=== PATIENT | male | born 1995 | race Caucasian/White ===

== ENCOUNTER 2020-05-12 15:42 | Emergency (ER) | payer BC, MEDICAID ==
[2020-05-12] MEDS ORDERED: ASPIRIN 81 MG PO STA (16:37)
[2020-05-12] MEDS ORDERED: SODIUM CHLORIDE 0.9% 1,000 ML IV STA ×2 (16:37)
--- NOTE | 2020-05-12 17:35 | ED ---
Chest Pain HPI - General Source: patient, RN notes reviewed, old records reviewed, Caregiver Mode of arrival: ambulatory Limitations: no limitations <Mildred Castillo - Last Filed: 05/12/20 19:10> <Ji Carter - Last Filed: 05/12/20 21:00> - General Chief Complaint: Chest Pain Stated Complaint: chest pain Time Seen by Provider: 05/12/20 16:19 - History of Present Illness Initial Comments: Patient is a 25 [place] demonstrates or infiltrates and chest pain. Patient reports that symptoms started saline at work. He states he typically does have some right-sided chest pain associated with migraines. He states these have migraine last night but went away with the chest pain persisted. He reports chest pain since he worse with certain movements. He denies any specific known injury. He denies any significant shortness of breath or cough. (Mildred Castillo) - Related Data Home Medications Medication Instructions Recorded Confirmed No Known Home Medications 05/12/20 05/12/20 Allergies Allergy/AdvReac Type Severity Reaction Status Date / Time No Known Allergies Allergy Verified 05/12/20 18:23 Review of Systems ROS Other: All systems not noted in ROS Statement are negative. <Mildred Castillo - Last Filed: 05/12/20 19:10> ROS Other: All systems not noted in ROS Statement are negative. <Ji Carter - Last Filed: 05/12/20 21:00> ROS Statement: Those systems with pertinent positive or pertinent negative responses have been documented in the HPI. EKG Findings - EKG Comments: EKG Findings:: EKG shows normal sinus rhythm minimal voltage criteria for LVH. May be normal variant. Inferior infarct age undetermined. Abnormal EKG. Ventricular rate 73 beats were minute period. Was 170 ms. QRS ration is 112 ms. QT QTc is 380/427 ms. <Mildred Castillo - Last Filed: 05/12/20 19:10> Past Medical History Past Medical History: No Reported History History of Any Multi-Drug Resistant Organisms: None Reported Past Surgical History: Bariatric Surgery, Tonsillectomy Past Anesthesia/Blood Transfusion Reactions: No Reported Reaction Past Psychological History: No Psychological Hx Reported Smoking Status: Never smoker Past Alcohol Use History: Occasional Past Drug Use History: None Reported <Mildred Castillo - Last Filed: 05/12/20 19:10> General Exam Limitations: no limitations General appearance: alert, in no apparent distress Head exam: Present: atraumatic, normocephalic, normal inspection Eye exam: Present: normal appearance, PERRL, EOMI. Absent: scleral icterus, conjunctival injection, periorbital swelling ENT exam: Present: normal exam, mucous membranes moist Neck exam: Present: normal inspection. Absent: tenderness, meningismus, lymphadenopathy Respiratory exam: Present: normal lung sounds bilaterally. Absent: respiratory distress, wheezes, rales, rhonchi, stridor Cardiovascular Exam: Present: regular rate, normal rhythm, normal heart sounds, other (Patient does have some tenderness over the right chest wall.). Absent: systolic murmur, diastolic murmur, rubs, gallop, clicks Extremities exam: Present: normal inspection, full ROM, normal capillary refill. Absent: tenderness, pedal edema, joint swelling, calf tenderness Back exam: Present: normal inspection Neurological exam: Present: alert, oriented X3, CN II-XII intact <Mildred Castillo - Last Filed: 05/12/20 19:10> - General Exam Comments Initial Comments: 25-year-old male. Alert and oriented. No distress. (Mildred Castillo) Course Vital Signs 05/12/20 05/12/20 15:44 17:39 Temperature 98.8 F Pulse Rate 74 75 Respiratory 16 18 Rate Blood Pressure 164/93 136/84 O2 Sat by Pulse 98 100 Oximetry Chest Pain [facility] <Mildred Castillo - Last Filed: 05/12/20 19:10> - [facility] 25-year-old male presents emergency room today with complaints of chest discomfort. Symptoms starting today when he was at work. He reports he's had a history of right-sided chest pain with migraines but this pain seem to persist today. Does seem to be recent producible. Patient is morbidly obese. Initial EKG was reviewednegative ST elevation. His initial troponin is negative. His vital signs are stable. He rated his pain a 3 out of 10 on the right side of his chest. With patient's obesity and some risk factors we decided to repeat a troponin. Case is discussed with Dr. Carter well away to final disposition. (Mildred Castillo) Disposition <Mildred Castillo - Last Filed: 05/12/20 19:10> Is patient prescribed a controlled substance at d/c from ED?: No Time of Disposition: 21:00 <Ji Carter - Last Filed: 05/12/20 21:00> Clinical Impression: Chest pain Disposition: HOME SELF-CARE Condition: Good Instructions (If sedation given, give patient instructions): Chest Pain (ED) Referrals: Nolan Hoffmann MD [Primary Care Provider] - 1-2 days
[2020-05-12 17:38] LABS: Basophils % (A) 0 %; Eosinophils # (A) 0.2 k/uL (0-0.7); Eosinophils % (A) 2 %; HCT 46.2 % (39.0-53.0); Lymphocytes % (A) 20 %; MCH 30.4 pg (25.0-35.0); MCHC 34.7 g/dL (31.0-37.0); MCV 87.7 fL (80.0-100.0); Mean Platelet Volume 6.1; Monocytes # (A) 0.5 k/uL (0-1.0); Monocytes % (A) 5 %; Neutrophils # (A) 7.1 k/uL (1.3-7.7); Neutrophils % (A) 71 %; Platelet Count 228 k/uL (150-450); RBC 5.27 m/uL (4.30-5.90); RDW 13.6 % (11.5-15.5)
[2020-05-12 17:51] LABS: Partial Thromboplastin Time 25.2 sec (22.0-30.0); Prothrombin Time 10.1 sec (9.0-12.0)
[2020-05-12 17:53] LABS: ALT 18 U/L (4-49); AST 21 U/L (17-59); African American GFR (CKD) >90 (>60 ml/min/1.73 sqM); Albumin 4.4 g/dL (3.5-5.0); Alkaline Phosphatase 62 U/L (38-126); Anion Gap 7 mmol/L; Blood Urea Nitrogen 14 mg/dL (9-20); Calcium 9.2 mg/dL (8.4-10.2); Carbon Dioxide 26 mmol/L (22-30); Chloride 105 mmol/L (98-107); Glucose 90 mg/dL (74-99); Magnesium 2.1 mg/dL (1.6-2.3); Non-African American GFR(CKD) >90 (>60 ml/min/1.73 sqM); Potassium 4.4 mmol/L (3.5-5.1); Sodium 138 mmol/L (137-145); Total Bilirubin 0.8 mg/dL (0.2-1.3); Total Protein 7.1 g/dL (6.3-8.2)
--- NOTE | 2020-05-12 18:27 | XR ---
EXAMINATION TYPE: XR chest 2V DATE OF EXAM: 05/12/2020 COMPARISON: None HISTORY: Chest pain TECHNIQUE: 2 views FINDINGS: Heart and mediastinum are normal. Lungs are clear. Diaphragm is normal. Bony thorax appears normal. There are chest leads. IMPRESSION: Normal chest.
[2020-05-12] MEDS ORDERED: KETOROLAC 30 MG/ML 1 ML VIAL IVP STA (18:28)
[2020-05-12 21:33] VITALS: BP 130/66; PULSE 79; RESP 19; TEMP 99
== END 2020-05-12 21:33 | disposition home or self-care (01) ==
LOC: EC 15:42
DX: R07.89 Other chest pain (principal); E66.01 Morbid (severe) obesity due to excess calories; R94.31 Abnormal electrocardiogram [ECG] [EKG]; Z98.84 Bariatric surgery status; Z68.43 Body mass index [BMI] 50.0-59.9, adult
CPT/HCPCS: 36415; 93005; 83880; 80053; 83690; 83735; 84484; 85025; 85610; 85730; 71046; 99285; 96374; 96361 ×3; J1885

== ENCOUNTER 2023-12-06 04:46 | Emergency (ER) | payer MEDICAID ==
[2023-12-06 05:21] VITALS: RESP 18; TEMP 98.4
[2023-12-06] MEDS: PROPARACAINE 0.5% OPHTH DROPS 15 ML BTL BOTH EYES STA (06:09)
[2023-12-06] MEDS: FLUOROMETHOLONE 0.1% OPHTH DROPS 5 ML BTL BOTH EYES STA (06:24)
[2023-12-06] MEDS: FLUORESCEIN STRIPS 1 MG STRIP BOTH EYES STA (06:24)
[2023-12-06] MEDS: DIPH,PERTUS(ACELL)TETVAC-LF 0.5 ML VIAL IM ONE (06:54)
[2023-12-06] MEDS: ERYTHROMYCIN 5 MG/GM OPHTH OINT 1 GM TUBE RIGHT EYE STA (06:55)
--- NOTE | 2023-12-06 06:58 | ED ---
General Adult HPI - General Chief complaint: Eye Problems Stated complaint: rt eye pain Time Seen by Provider: 12/06/23 06:04 Source: patient, RN notes reviewed Mode of arrival: ambulatory Limitations: no limitations - History of Present Illness Initial comments: 48-year-old male presents into the emergency room for a chief complaint of right eye irritation. 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 He states he does not always use eye protection and was in yesterday. He took his hat off and started to notice irritation in the right eye. States it is tearing and painful to keep open or closed. Does not wear contacts. He states his looked in his eye and saw Dr. Stubbs and he thinks he has metal in his eye. He is not up-to-date on tetanus. His vision is a little blurry because of the tearing. No pain with movement of the eye.Patient has no other complaints at this time including shortness of breath, chest pain, abdominal pain, nausea or vomiting, headache, or visual changes. - Related Data Previous Rx's Medication Instructions Recorded Erythromycin Ophth Oint [Romycin 1 applic RIGHT EYE QID 7 Days #1 gm 12/06/23 Ophth Oint] Allergies Allergy/AdvReac Type Severity Reaction Status Date / Time No Known Allergies Allergy Verified 12/06/23 04:51 Review of Systems ROS Statement: Those systems with pertinent positive or pertinent negative responses have been documented in the HPI. ROS Other: All systems not noted in ROS Statement are negative. Past Medical History Past Medical History: No Reported History History of Any Multi-Drug Resistant Organisms: None Reported Past Surgical History: Bariatric Surgery, Tonsillectomy Past Anesthesia/Blood Transfusion Reactions: No Reported Reaction Past Psychological History: No Psychological Hx Reported Smoking Status: Never smoker Past Alcohol Use History: Occasional Past Drug Use History: None Reported General Exam Limitations: no limitations General appearance: alert, in no apparent distress Head exam: Present: atraumatic Eye exam: Present: PERRL, EOMI, conjunctival injection (Right conjunctival in jection with small metallic foreign body at about 5:00). Absent: periorbital swelling, periorbital tenderness Expanded Eyelids: Normal Inspection: Bilateral Pupils: Regular, Round: Bilateral Sclera/Conjunctival: Foreign Body: Right Anterior chamber: Normal Inspection: Bilateral Posterior chamber: Deferred: Bilateral Visual acuity (R) = 20/: 40 Visual acuity (L) = 20/: 50 With correction: No ENT exam: Present: normal exam Neck exam: Present: normal inspection Respiratory exam: Absent: respiratory distress Neurological exam: Present: alert Course Vital Signs 12/06/23 04:48 Temperature 98.4 F Pulse Rate 67 Respiratory 18 Rate Blood Pressure 145/91 O2 Sat by Pulse 98 Oximetry Procedures - Forgein Body Removal Eye Site: Right Location in eye(s): 5 pm Anesthetic Used: Proparacaine Eye Exam Technique: [place] Lamp, Fluorescein Foreign Body Suspected: Metal Forgein Body Removal Technique: Irrigation, Algerbrush Remaining Debris: No Patient Tolerated: well Medical Decision Making - Medical Decision Making Was pt. sent in by a medical professional or institution (ZELALEM Benitez, KNITTING MACHINE FIXER HEAD, urgent care, hospital, or group home...) When possible be specific @ -No Did you speak to anyone other than the patient for history (EMS, parent, family, police, friend...)? What history was obtained from this source @ -No Did you review nursing and triage notes (agree or disagree)? Why? @ -I reviewed and agree with nursing and triage notes Were old charts reviewed (outside hosp., previous admission, EMS record, old EKG, old radiological studies, urgent care reports/EKG's, group home records)? Report findings @ -No old charts were reviewed Differential Diagnosis (chest pain, altered mental status, abdominal pain women, abdominal pain men, vaginal bleeding, weakness, fever, dyspnea, syncope, headache, dizziness, GI bleed, back pain, seizure, CVA, palpatations, mental health)? @ -Conjunctivitis, foreign body, globe rupture EKG interpreted by me (3pts min.). @ -As above X-rays interpreted by me (1pt min.). @ -None done CT interpreted by me (1pt min.). @ -None done U/S interpreted by me (1pt. min.). @ -None done What testing was considered but not performed or refused? (CT, X-rays, U/S, labs)? Why? @ -None What meds were considered but not given or refused? Why? @ -None Did you discuss the management of the patient with other professionals (professionals i.e. ZELALEM Benitez, KNITTING MACHINE FIXER HEAD, lab, RT, psych nurse, social contact worker, software database architect, teacher, biological technical officer, case management associate)? Give summary @ -Will be discussing with ophthalmology Was smoking cessation discussed for >3mins.? @ -No Was critical care preformed (if so, how long)? @ -No Were there social determinants of health that impacted care today? How? (Homelessness, low income, unemployed, alcoholism, drug addiction, transport ation, low edu. Level, literacy, decrease access to med. care, custodial, rehab)? @ -No Was there de-escalation of care discussed even if they declined (Discuss DNR or withdrawal of care, Hospice)? DNR status @ -No What co-morbidities impacted this encounter? (DM, HTN, Smoking, COPD, CAD, Cancer, CVA, ARF, Chemo, Hep., AIDS, mental health diagnosis, sleep apnea, morbid obesity)? @ -None Was patient admitted / discharged? Hospital course, mention meds given and route, prescriptions, significant lab abnormalities, going to OR and other pertinent info. @ -Was seen in the emergency Department. Patient was noted to have foreign body in the right eye at about 5:00. Schoolcraft brush was used and I believe all foreign material was removed from the eye. Patient was given his tetanus shot and antibiotic ointment. I am planning on discussing with ophthalmology this morning for follow-up. He will return to the emergency room for any worsening symptoms. Undiagnosed new problem with uncertain prognosis? @ -No Drug Therapy requiring intensive monitoring for toxicity (Heparin, Nitro, Insulin, Cardizem)? @ -No Were any procedures done? @ -Body removal from the right eye with Schoolcraft brush Diagnosis/symptom? @ -Randolph body right conjunctiva Acute, or Chronic, or Acute on Chronic? @ -Acute Uncomplicated (without systemic symptoms) or Complicated (systemic symptoms)? @ -unComplicated Side effects of treatment? @ -No Exacerbation, Progression, or Severe Exacerbation? @ -No Poses a threat to life or bodily function? How? (Chest pain, [place], [place], pneumonia, PE, COPD, DKA, ARF, appy, cholecystitis, CVA, Diverticulitis, Homicidal, Suicidal, threat to staff... and all critical care pts) @ -No Disposition Clinical Impression: Foreign body, eye Disposition: HOME SELF-CARE Condition: Good Instructions (If sedation given, give patient instructions): Eye Foreign Body (ED) Additional Instructions: Please use antibiotic ointment as directed. I sent some to your pharmacy as katie pena. Please follow-up with ophthalmology. I will call your after I talk with them this morning. Return to the ER for any worsening symptoms. Prescriptions: Erythromycin Ophth Oint [Romycin Ophth Oint] 1 applic RIGHT EYE QID 7 Days #1 gm Is patient prescribed a controlled substance at d/c from ED?: No Referrals: Solis Silver MD [STAFF PHYSICIAN] - 1-2 days Time of Disposition: 06:55
[2023-12-06 07:30] VITALS: BP 119/78; PULSE 63
== END 2023-12-06 07:05 | disposition home or self-care (01) ==
LOC: EC 04:46
DX: T15.01XA Foreign body in cornea, right eye, initial encounter (principal); Z23 Encounter for immunization
CPT/HCPCS: 65220; 90471; 90715; 99283

== ENCOUNTER 2025-04-20 09:50 | Observation (INO) | payer MEDICAID ==
[2025-04-20] MEDS: KETOROLAC 15 MG/ML 1 ML VIAL IVP STA (11:00)
[2025-04-20 11:27] LABS: Bilirubin,Urine Negative (Negative); Blood,Urine Negative (Negative); Color,Urine Yellow; Glucose,Urine (UA) Negative (Negative); Ketones,Urine Negative (Negative); Leukocyte Esterase,Urine Negative (Negative); Nitrite,Urine Negative (Negative); PH, Urine 5.5 (5.0-8.0); Protein,Urine Trace (Negative); Specific Gravity,Urine 1.033 (1.001-1.035); Urobilinogen,Urine <2.0 mg/dL (<2.0)
[2025-04-20 11:31] LABS: ALT 17 U/L (4-49); African American GFR (CKD) >90 (>60 ml/min/1.73 sqM); Albumin 4.4 g/dL (3.5-5.0); Anion Gap 13 mmol/L; Blood Urea Nitrogen 12 mg/dL (9-20); Calcium 9.5 mg/dL (8.4-10.2); Carbon Dioxide 22 mmol/L (22-30); Chloride 103 mmol/L (98-107); Glucose 101 mg/dL (74-99); Non-African American GFR(CKD) >90 (>60 ml/min/1.73 sqM); Sodium 138 mmol/L (137-145); Total Protein 7.2 g/dL (6.3-8.2)
[2025-04-20 11:43] LABS: AST 27 U/L (17-59); Alkaline Phosphatase 62 U/L (38-126); Potassium 4.1 mmol/L (3.5-5.1)
--- NOTE | 2025-04-20 11:51 | US ---
EXAMINATION TYPE: US scrotum with doppler. DATE OF EXAM: 04/20/2025 COMPARISON: NONE CLINICAL INDICATION: Male, 30 years old with history of pain; Pain in right testicle started this mor danny. Patient states he was doing heavy lifting yesterday. TECHNIQUE: Grayscale, color Doppler and spectral Doppler imaging of the scrotum. FINDINGS: EXAM MEASUREMENTS: TESTICLES: Right Testicle: 5.1 x 3.3 x 2.2 cm Left Testicle: 4.8 x 3.4 x 2.6 cm EPIDIDYMIS HEAD: Right Epididymis: 1.3 x 1.0 x 0.9 cm Left Epididymis: 0.9 x 1.3 x 1.1 cm Doppler performed to assess for testicular vascularity; bilateral color flow and spectral waveforms are seen. Presence of hydroceles: *Yes right: 3.9 x 3.4 x 0.7 cm. Left: 2.1 x 1.9 x 0.8 cm. Presence of varicoceles: None seen Question possible scrotal hernia? Echogenic area seen in right scrotum, moves with valsalva, unab le to follow to see a break in the wall for certain. IMPRESSION: Scrotal hernia not excluded. Bilateral hydroceles. Correlate clinically. [facility], , 04/20/2025 11:49 AM
--- NOTE | 2025-04-20 13:05 | CT ---
[facility] EXAMINATION TYPE: CT abdomen pelvis w con DATE OF EXAM: 04/20/2025 12:57 PM COMPARISON: None. CLINICAL INDICATION: Male, 30 years old with history of pain right, possible hernia, Right sided groi n pain radiating up into RUQ since this morning TECHNIQUE:CT scan of the abdomen and pelvis is performed without Oral Contrast and with IV Contrast, patient injected with 100 ml mL of Isovue 300. CT DLP: 5960.6 mGycm, Automated exposure control for dose reduction was used. FINDINGS: LUNG BASES-: No visible nodule. No infiltrate. LIVER/GB: No calcified gallstones. No space occupying hepatic lesion. Biliary tree is of normal ca liber. PANCREAS: No inflammation. No distinct mass. SPLEEN: No splenic enlargement. No lesion seen. ADRENALS: No nodule. No thickening. KIDNEYS/BLADDER: No hydronephrosis. No nephrolithiasis. No distinct renal mass. Urinary bladder g rossly unremarkable. BOWEL: Dilated appendix up to 1.5 cm with wall thickening and periappendiceal inflammatory change. On the coronal data set there is a small appendicolith. Findings are compatible with mild uncomplicated acute appendicitis. Normal bowel caliber. No free air or abscess seen. GENITAL ORGANS: No gross abnormality. LYMPH NODES: No greater than 1cm abdominal or pelvic lymph nodes are appreciated. AORTA: No significant abnormality. OSSEOUS STRUCTURES: No significant abnormality is seen. OTHER: No significant additional abnormality is seen. IMPRESSION: 1. Findings are compatible with mild uncomplicated acute appendicitis. [facility], , 04/20/2025 1:03 PM
[2025-04-20 13:35] LABS: Basophils # (A) 0.04 10*3/uL (0.00-0.10); Basophils % (A) 0.3 %; Eosinophils # (A) 0.07 10*3/uL (0.04-0.35); Eosinophils % (A) 0.5 %; HCT 45.0 % (39.6-50.0); HGB 15.9 g/dL (13.0-17.0); Lymphocytes # (A) 1.37 10*3/uL (0.90-5.00); Lymphocytes % (A) 9.8 %; MCH 30.2 pg (27.0-32.0); MCHC 35.3 g/dL (32.0-37.0); MCV 85.6 fL (80.0-97.0); Monocytes # (A) 0.83 10*3/uL (0.20-1.00); Monocytes % (A) 5.9 %; Neutrophils # (A) 11.65 10*3/uL (1.80-7.70); Neutrophils % (A) 83.1 %; Platelet Count 193 10*3/uL (140-440); RBC 5.26 10*6/uL (4.40-5.60); RDW 12.6 % (11.5-14.5); WBC 14.01 10*3/uL (4.50-10.00)
[2025-04-20] MEDS ORDERED: NALOXONE 0.4 MG/ML 1 ML VIAL IV PRN (13:43)
[2025-04-20] MEDS ORDERED: ONDANSETRON 4 MG/2 ML VIAL IVP PRN (13:43)
--- NOTE | 2025-04-20 13:43 | ED ---
Abdominal Pain HPI - General Chief Complaint: Abdominal Pain Stated Complaint: Abd Pain Time Seen by Provider: 04/20/25 10:24 Source: patient, RN notes reviewed Mode of arrival: ambulatory Limitations: no limitations - History of Present Illness Initial Comments: 30-year-old male presents emergency department complaint of right side abdominal pain, scrotal pain. Patient states pain started swelling when he woke up his steadily worsening. States initially he said the abdominal pain was into the scrotum denies any dysuria no change in bowel habits no fevers. - Related Data Previous Rx's Medication Instructions Recorded Erythromycin Ophth Oint [Romycin 1 applic RIGHT EYE QID 7 Days #1 gm 12/06/23 Ophth Oint] Allergies Allergy/AdvReac Type Severity Reaction Status Date / Time No Known Allergies Allergy Verified 04/20/25 10:17 Review of Systems ROS Statement: Those systems with pertinent positive or pertinent negative responses have been documented in the HPI. ROS Other: All systems not noted in ROS Statement are negative. Past Medical History Past Medical History: No Reported History History of Any Multi-Drug Resistant Organisms: None Reported Past Surgical History: Bariatric Surgery, Tonsillectomy Past Anesthesia/Blood Transfusion Reactions: No Reported Reaction Past Psychological History: No Psychological Hx Reported Smoking Status: Current every day smoker Past Alcohol Use History: Occasional Past Drug Use History: Marijuana General Exam Limitations: no limitations General appearance: alert, in no apparent distress Head exam: Present: atraumatic, normocephalic, normal inspection Eye exam: Present: normal appearance, PERRL, EOMI. Absent: scleral icterus, conjunctival injection, periorbital swelling ENT exam: Present: normal exam, normal oropharynx, mucous membranes moist Neck exam: Present: normal inspection, full ROM. Absent: tenderness, meningismus, lymphadenopathy Respiratory exam: Present: normal lung sounds bilaterally. Absent: respiratory distress, wheezes, rales, rhonchi, stridor Cardiovascular Exam: Present: regular rate, normal rhythm, normal heart sounds. Absent: systolic murmur, diastolic murmur, rubs, gallop, clicks GI/Abdominal exam: Present: soft, tenderness, normal bowel sounds. Absent: distended, guarding, rebound, rigid exam: Present: testicular tenderness Back exam: Absent: CVA tenderness (R), CVA tenderness (L) Course Vital Signs 04/20/25 04/20/25 04/20/25 10:14 11:09 13:14 Temperature 98 F Pulse Rate 68 70 57 L Respiratory 20 16 16 Rate Blood Pressure 126/89 131/80 133/75 O2 Sat by Pulse 99 97 97 Oximetry Medical Decision Making - Medical Decision Making Was pt. sent in by a medical professional or institution (ZELALEM Benitez, TUCKING MACHINE OPERATOR, urgent care, hospital, or senior care...) When possible be specific @ -[No] Did you speak to anyone other than the patient for history (EMS, parent, family, police, friend...)? What history was obtained from this source @ -[No] Did you review nursing and triage notes (agree or disagree)? Why? @ -[I reviewed and agree with nursing and triage notes] Were old charts reviewed (outside hosp., previous admission, EMS record, old EKG, old radiological studies, urgent care reports/EKG's, senior care records)? Report findings @ -[No old charts were reviewed] Differential Diagnosis (chest pain, altered mental status, abdominal pain women, abdominal pain men, vaginal bleeding, weakness, fever, dyspnea, syncope, headache, dizziness, GI bleed, back pain, seizure, CVA, palpatations, mental health, musculoskeletal)? @ -Differential Abdominal Pain Men: Appendicitis, cholecystitis, diverticulosis, ischemic bowel, pancreatitis, hepatitis, UTI, gastroenteritis, AAA, incarcerated hernia, bowel obstruction, constipation, inflammatory bowel, hepatitis, peptic ulcer disease, splenic infarction, perforated viscus, testicular torsion, this is not meant to be an all-inclusive list EKG interpreted by me (3pts min.). @ -None X-rays interpreted by me (1pt min.). @ -[None done] CT interpreted by me (1pt min.). @ -CT abdomen pelvis showing dilated appendix with inflammatory changes consistent with appendicitis U/S interpreted by me (1pt. min.). @ -Ultrasound scrotum showing hydrocele, possible hernia What testing was considered but not performed or refused? (CT, X-rays, U/S, labs)? Why? @ -[None] What meds were considered but not given or refused? Why? @ -[None] Did you discuss the management of the patient with other professionals (professionals i.e. , ZELALEM, TUCKING MACHINE OPERATOR, lab, RT, psych nurse, social work specialist, cylinder handler, teacher, contracting officer, keycase assembler)? Give summary @ -Discussed the case with Dr. Herrera for admission Was smoking cessation discussed for >3mins.? @ -[No] Was critical care preformed (if so, how long)? @ -[No] Were there social determinants of health that impacted care today? How? (Homelessness, low income, unemployed, alcoholism, drug addiction, transportation, low edu. Level, literacy, decrease access to med. care, [place] [facility], rehab)? @ -[No] Was there de-escalation of care discussed even if they declined (Discuss DNR or withdrawal of care, Hospice)? DNR status @ -[No] What co-morbidities impacted this encounter? (DM, HTN, Smoking, COPD, CAD, Cancer, CVA, ARF, Chemo, Hep., AIDS, mental health diagnosis, sleep apnea, morbid obesity)? @ -[None] Was patient admitted / discharged? Hospital course, mention meds given and route, prescriptions, significant lab abnormalities, going to OR and other pertinent info. @ -Admitted patient was given Zosyn. Patient was found to have acute appendicitis. Patient admitted for surgical invention. Undiagnosed new problem with uncertain prognosis? @ -[No] Drug Therapy requiring intensive monitoring for toxicity (Heparin, Nitro, Insulin, Cardizem)? @ -[No] Were any procedures done? @ -[No] Diagnosis/symptom? @ -Acute appendicitis Acute, or Chronic, or Acute on Chronic? @ -Acute Uncomplicated (without systemic symptoms) or Complicated (systemic symptoms)? @ -Complicated Side effects of treatment? @ -[No] Exacerbation, Progression, or Severe Exacerbation? @ -[No] Poses a threat to life or bodily function? How? (Chest pain, [place], [place], pneumonia, PE, COPD, DKA, ARF, appy, cholecystitis, CVA, Diverticulitis, Homicidal, Suicidal, threat to staff... and all critical care pts) @ -yes Surgical risk - Lab Data Result diagrams: 04/20/25 13:13 04/20/25 10:59 Lab Results 04/20/25 04/20/25 04/20/25 Range/Units 10:59 11:15 13:13 WBC 14.01 H (4.50-10.00) 10*3/uL RBC 5.26 (4.40-5.60) 10*6/uL Hgb 15.9 (13.0-17.0) g/dL Hct 45.0 (39.6-50.0) % MCV 85.6 (80.0-97.0) fL MCH 30.2 (27.0-32.0) pg MCHC 35.3 (32.0-37.0) g/dL Plt Count 193 (140-440) 10*3/uL MPV 8.1 L (9.5-12.2) fL Immature Gran % (Auto) 0.4 % Neutrophils % 83.1 % Lymphocytes % 9.8 % Monocytes % 5.9 % Eosinophils % 0.5 % Basophils % 0.3 % Immature Gran # 0.05 H (0.00-0.04) 10*3/uL Neutrophils # 11.65 H (1.80-7.70) 10*3/uL Lymphocytes # 1.37 (0.90-5.00) 10*3/uL Monocytes # 0.83 (0.20-1.00) 10*3/uL Eosinophils # 0.07 (0.04-0.35) 10*3/uL Basophils # 0.04 (0.00-0.10) 10*3/uL Sodium 138 (137-145) mmol/L Potassium 4.1 (3.5-5.1) mmol/L Chloride 103 (98-107) mmol/L Carbon Dioxide 22 (22-30) mmol/L Anion Gap 13 mmol/L BUN 12 (9-20) mg/dL Creatinine 0.80 (0.66-1.25) mg/dL Est GFR (CKD-EPI)AfAm >90 (>60 ml/min/1.73 sqM) Est GFR (CKD-EPI)NonAf >90 (>60 ml/min/1.73 sqM) Glucose 101 H (74-99) mg/dL Calcium 9.5 (8.4-10.2) mg/dL Total Bilirubin 1.3 (0.2-1.3) mg/dL AST 27 (17-59) U/L ALT 17 (4-49) U/L Alkaline Phosphatase 62 (38-126) U/L Total Protein 7.2 (6.3-8.2) g/dL Albumin 4.4 (3.5-5.0) g/dL Urine Color Yellow Urine Appearance Clear (Clear) Urine pH 5.5 (5.0-8.0) Ur Specific [place] 1.033 (1.001-1.035) Urine Protein Trace H (Negative) Urine Glucose (UA) Negative (Negative) Urine Ketones Negative (Negative) Urine Blood Negative (Negative) Urine Nitrite Negative (Negative) Urine Bilirubin Negative (Negative) Urine Urobilinogen <2.0 (<2.0) mg/dL Ur Leukocyte Esterase Negative (Negative) Disposition Clinical Impression: Acute appendicitis Disposition: ADMITTED IP TO THIS HOSP Condition: Fair Referrals: None,Stated [Primary Care Provider] - 1-2 days Time of Disposition: 13:43
[2025-04-20] MEDS ORDERED: HYDROmorphone 1 MG/ML 1 ML SYRINGE IVP PRN (14:09)
[2025-04-20] MEDS: ONDANSETRON 4 MG/2 ML VIAL IVP PRN (14:41)
[2025-04-20] MEDS: HYDROmorphone 0.5 MG/0.5 ML SYRINGE IVP STA (14:46)
[2025-04-20] MEDS: SODIUM CHLORIDE 0.9% 1,000 ML IV SCH ×3 (14:47→22:06)
[2025-04-20] MEDS: PIPERACILLIN-TAZOBACTAM 3.375 GM in SODIUM CHLORIDE 0.9% 100 ML IVPB STA (14:53)
--- NOTE | 2025-04-20 15:05 | P.GSHP ---
History of Present Illness H&P Date: 04/20/25 CHIEF COMPLAINT: Abdominal pain HISTORY OF PRESENT ILLNESS: This is a 30-year-old male who presented with right lower quadrant pain that radiates into the right testicle. Patient reports that the pain started this morning. He has been nauseated. He was doing some heavy lifting at work yesterday. He does not report feeling a hernia bulge or noted any injury at that particular time. But he does report his main pain is in the right testicle. Patient states "feels like he got kicked in the balls." He had CT scan abdomen pelvis that reported a mild uncomplicated appendicitis. Scrotal ultrasound had reported scrotal hernia is not excluded and bilateral hydrocephalus. Patient reports his urine is dark but denies any difficulty urinating. He reports normal bowel movements. Past surgical history includes a lap band in 2011. PAST MEDICAL HISTORY: See list. PAST SURGICAL HISTORY: See list. MEDICATIONS: See list. ALLERGIES: See list. SOCIAL HISTORY: No illicit drug use. REVIEW OF SYSTEMS: CONSTITUTIONAL: Denies fever or chills. HEENT: Denies blurred vision, vision changes, or eye pain. Denies hemoptysis ENDOCRINE: Denies heat or cold intolerance. CARDIOVASCULAR: Denies chest pain or pressure. RESPIRATORY: No shortness of breath. GASTROINTESTINAL: Please refer to HPI otherwise unremarkable NEURO: Denies history of seizures. PSYCH: No depression or suicidal ideation HEMATOLOGIC: Denies bleeding disorders. LYMPHATIC: The patient denies any lumps and bumps around the neck. GENITOURINARY: Denies any blood in urine or increased urinary frequency. MUSCULOSKELETAL: Denies myalgias. Denies joint swelling. Denies decreased range of motion beyond patients baseline. SKIN: Denies pruitis. Denies rash. PHYSICAL EXAM: VITAL SIGNS: Reviewed GENERAL: Well-developed in no acute distress. HEENT: No sclera icterus. Extraocular movements grossly intact. Moist buccal mucosa. Head is atraumatic, normocephalic. Hears conversational speech. No nasal drainage. NECK: Supple without lymphadenopathy. CHEST: Non-labored respirations and equal bilateral excursions. CARDIOVASCULAR: Palpable 2+ radial pulses. ABDOMEN: Soft. obese. Nondistended. Tenderness to palpation right lower quadrant exam: Tenderness palpation right testicle MUSCULOSKELETAL: No clubbing or cyanosis. NEUROLOGIC: No focal or lateralizing signs. Cranial nerves II through XII grossly intact. PSYCH: Appropriate affect. Alert and oriented to person, place and time. SKIN: Well perfused. Good skin turgor. LABORATORY DATA: WBC14 Hgb 15.9 platelets 193 Sodium 138 potassium 4.1 creatinine 0.80 LFTs normal Urinalysis no evidence of infection, no blood IMAGING: CT scan abdomen pelvis findings are compatible with mild uncomplicated acute appendicitis Scrotal ultrasound reporting scrotal hernia not excluded. Bilateral hydroceles ASSESSMENT: 1. Right lower quadrant abdominal pain and right testicular pain. CT scan abdomen pelvis reporting mild uncomplicated acute appendicitis. Scrotal ultrasound reporting that scrotal hernia cannot be excluded and noted bilateral hydroceles. PLAN: - Patient tentatively scheduled for Robotic appendectomy - Consult urology regarding right testicular pain - Continue IV antibiotics - Keep n.p.o. 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 Signing provider agrees with the documented findings, assessment, and plan of care. Past Medical History Past Medical History: No Reported History History of Any Multi-Drug Resistant Organisms: None Reported Past Surgical History: Bariatric Surgery, Tonsillectomy Past Anesthesia/Blood Transfusion Reactions: No Reported Reaction Past Psychological History: No Psychological Hx Reported Smoking Status: Current every day smoker Past Alcohol Use History: Occasional Past Drug Use History: Marijuana Medications and Allergies Home Medications Medication Instructions Recorded Confirmed Type No Known Home Medications 04/20/25 04/20/25 History Allergies Allergy/AdvReac Type Severity Reaction Status Date / Time No Known Allergies Allergy Verified 04/20/25 14:40 Surgical - Exam Vital Signs Temp Pulse Resp BP Pulse Ox 98 F 68 20 126/89 99 04/20/25 10:14 04/20/25 10:14 04/20/25 10:14 04/20/25 10:14 04/20/25 10:14 Results - Labs 04/20/25 13:13 04/20/25 10:59 Abnormal Lab Results - Last 24 Hours (Table) 04/20/25 04/20/25 04/20/25 Range/Units 10:59 11:15 13:13 WBC 14.01 H (4.50-10.00) 10*3/uL MPV 8.1 L (9.5-12.2) fL Immature Gran # 0.05 H (0.00-0.04) 10*3/uL Neutrophils # 11.65 H (1.80-7.70) 10*3/uL Glucose 101 H (74-99) mg/dL Urine Protein Trace H (Negative) Diabetes panel 04/20/25 Range/Units 10:59 Sodium 138 (137-145) mmol/L Potassium 4.1 (3.5-5.1) mmol/L Chloride 103 (98-107) mmol/L Carbon Dioxide 22 (22-30) mmol/L BUN 12 (9-20) mg/dL Creatinine 0.80 (0.66-1.25) mg/dL Glucose 101 H (74-99) mg/dL Calcium 9.5 (8.4-10.2) mg/dL AST 27 (17-59) U/L ALT 17 (4-49) U/L Alkaline Phosphatase 62 (38-126) U/L Total Protein 7.2 (6.3-8.2) g/dL Albumin 4.4 (3.5-5.0) g/dL Calcium panel 04/20/25 Range/Units 10:59 Calcium 9.5 (8.4-10.2) mg/dL Albumin 4.4 (3.5-5.0) g/dL Pituitary panel 04/20/25 Range/Units 10:59 Sodium 138 (137-145) mmol/L Potassium 4.1 (3.5-5.1) mmol/L Chloride 103 (98-107) mmol/L Carbon Dioxide 22 (22-30) mmol/L BUN 12 (9-20) mg/dL Creatinine 0.80 (0.66-1.25) mg/dL Glucose 101 H (74-99) mg/dL Calcium 9.5 (8.4-10.2) mg/dL Adrenal panel 04/20/25 Range/Units 10:59 Sodium 138 (137-145) mmol/L Potassium 4.1 (3.5-5.1) mmol/L Chloride 103 (98-107) mmol/L Carbon Dioxide 22 (22-30) mmol/L BUN 12 (9-20) mg/dL Creatinine 0.80 (0.66-1.25) mg/dL Glucose 101 H (74-99) mg/dL Calcium 9.5 (8.4-10.2) mg/dL Total Bilirubin 1.3 (0.2-1.3) mg/dL AST 27 (17-59) U/L ALT 17 (4-49) U/L Alkaline Phosphatase 62 (38-126) U/L Total Protein 7.2 (6.3-8.2) g/dL Albumin 4.4 (3.5-5.0) g/dL
[2025-04-20] MEDS: IV FLUID CONTINUATION 1,000 ML IV ONE (16:15)
[2025-04-20] MEDS: DEXAMETHASONE SOD PHOSPHATE 4 MG/ML 1 ML VIAL IVP STA (16:34)
--- NOTE | 2025-04-20 17:38 | P.HPADDEND ---
H&P Addendum H&P Addendum Date: 04/20/25 Patient seen and evaluated. Patient has concurrent acute appendicitis with right scrotal hydrocele for which he complains of pain. Intraoperative assessment will be performed for any residual hernia. Otherwise, consultation to urology for symptomatic hydrocele advised.
[2025-04-20] MEDS ORDERED: ROCURONIUM 10 MG/ML (5 ML VIAL) IV ONE (17:46)
[2025-04-20] MEDS ORDERED: fentaNYL (PF) 50 MCG/ML 2 ML AMP ONE (17:46)
[2025-04-20] MEDS ORDERED: LIDOCAINE 1% INJ 10MG/ML (20 ML MDV) ONE (17:46)
[2025-04-20] MEDS ORDERED: MIDAZOLAM 2 MG/2 ML VIAL ONE (17:46)
[2025-04-20] MEDS ORDERED: SUCCINYLCHOLINE CHLORIDE 200 MG/10 ML VIAL IV ONE (17:46)
[2025-04-20] MEDS ORDERED: GLYCOPYRROLATE 0.2 MG/ML 2 ML VIAL ONE (17:46)
[2025-04-20] MEDS ORDERED: NEOSTIGMINE 1 MG/ML 10 ML VIAL ONE (17:46)
[2025-04-20] MEDS ORDERED: PROPOFOL 10 MG/ML 20 ML VIAL IV ONE (17:46)
[2025-04-20] MEDS: LIDOCAINE 1%-EPI 1:100,000 20 ML VIAL SQ ONE (18:20)
[2025-04-20] MEDS: LACTATED RINGERS 1,000 ML IV ONE (18:41)
[2025-04-20] MEDS: PIPERACILLIN-TAZOBACTAM 3.375 GM in SODIUM CHLORIDE 0.9% 100 ML IVPB SCH (20:16)
[2025-04-20] MEDS: HEPARIN SODIUM,PORCINE 5,000 UNIT/ML 1 ML VIAL SQ STA (20:19)
[2025-04-20] MEDS: KETOROLAC 15 MG/ML 1 ML VIAL IVP SCH (20:21)
[2025-04-20] MEDS: ACETAMINOPHEN IV (For NPO) 1,000 MG in EMPTY BAG 1 BAG IVPB SCH (20:22)
[2025-04-20] MEDS: SCOPOLAMINE 1 MG/72 HR PATCH TRANSDERM STA (20:23)
[2025-04-20] MEDS: SIMETHICONE 80 MG CHEWABLE PO SCH (22:06)
[2025-04-21] MEDS: PIPERACILLIN-TAZOBACTAM 3.375 GM in SODIUM CHLORIDE 0.9% 100 ML IVPB SCH (00:20)
[2025-04-21 03:02] VITALS: TEMP 98.1
[2025-04-21] MEDS: HEPARIN SODIUM,PORCINE 5,000 UNIT/ML 1 ML VIAL SQ SCH (08:27)
[2025-04-21 08:37] VITALS: BP 104/60; PULSE 57; RESP 18
[2025-04-21 09:01] LABS: Basophils # (A) 0.01 10*3/uL (0.00-0.10); Basophils % (A) 0.1 %; Eosinophils # (A) 0.03 10*3/uL (0.04-0.35); Eosinophils % (A) 0.3 %; HCT 41.3 % (39.6-50.0); HGB 14.4 g/dL (13.0-17.0); Lymphocytes # (A) 1.47 10*3/uL (0.90-5.00); Lymphocytes % (A) 12.7 %; MCH 30.2 pg (27.0-32.0); MCHC 34.9 g/dL (32.0-37.0); MCV 86.6 fL (80.0-97.0); Monocytes # (A) 1.06 10*3/uL (0.20-1.00); Monocytes % (A) 9.1 %; Neutrophils # (A) 9.01 10*3/uL (1.80-7.70); Neutrophils % (A) 77.5 %; Platelet Count 185 10*3/uL (140-440); RBC 4.77 10*6/uL (4.40-5.60); RDW 12.8 % (11.5-14.5); WBC 11.61 10*3/uL (4.50-10.00)
--- NOTE | 2025-04-21 09:10 | P.PN ---
Subjective Progress Note Date: 04/21/25 CHIEF COMPLAINT: Appendicitis HISTORY OF PRESENT ILLNESS: The patient is a 30-year-old male postop day 1 status post appendectomy for appendicitis. Reports he is feeling well. No further severe abdominal pain. He is tolerating all of his diet. He reports no further scrotal discomfort. ROS: No reports of nausea and vomiting. No bowel movements. No fevers or chills. No new chest pain. No productive sputum PHYSICAL EXAM: VITAL SIGNS: Reviewed CONSTITUTIONAL: Well developed and in no acute distress. EYES: Conjuctivae without sclera icterus. Extraocular movements grossly intact. HEAD, EARS, NOSE, THROAT: Moist buccal mucosa. Head is atraumatic, normocephalic. Hears conversational speech. No nasal drainage. RESPIRATORY: Non-labored respirations and equal bilateral excursions. CARDIOVASCULAR: Palpable 2+ radial pulses. ABDOMEN: Incisions clean dry and intact. MUSCULOSKELETAL: No gross deformity of the lower extremities noted. No clubbing. No cyanosis. SKIN: Good skin turgor. Well perfused. NEUROLOGIC: Cranial nerves II through XII grossly intact. No focal or lateralizing signs. PSYCH: Appropriate affect. Alert and oriented to person, place and time. CLINICAL LABS: Reviewed. Labs pending this morning. ASSESSMENT: 1. Acute appendicitis 2. Morbid obesity excess calories, BMI 48.0 3. Right hydrocele PLAN: 1. Recommend follow-up with outpatient urologist for hydrocele 2. Stable for discharge from a surgical standpoint 3. Close outpatient follow-up described Dictation was produced using [email or web address] dictation software. Please excuse any grammatical, word or spelling errors. Objective - Vital Signs Vital signs: Vital Signs Temp 98.1 F 04/21/25 07:01 Pulse 57 L 04/21/25 07:01 Resp 18 04/21/25 07:01 BP 104/60 04/21/25 07:01 Pulse Ox 97 04/21/25 07:01 FiO2 Intake & Output 04/20/25 04/21/25 04/21/25 18:59 06:59 18:59 Intake Total 1200 1420 Output Total 60 Balance 1140 1420 Weight 183.705 kg 183.705 kg Intake: IV 1200 100 Oral 1320 Output: Urine 50 Estimated Blood Loss 10 Other: Voiding Method Toilet # Voids 3 - Labs CBC & Chem 7: 04/21/25 08:31 04/20/25 10:59 Labs: Abnormal Lab Results - Last 24 Hours (Table) 04/20/25 04/20/25 04/20/25 Range/Units 10:59 11:15 13:13 WBC 14.01 H (4.50-10.00) 10*3/uL MPV 8.1 L (9.5-12.2) fL Immature Gran # 0.05 H (0.00-0.04) 10*3/uL Neutrophils # 11.65 H (1.80-7.70) 10*3/uL Monocytes # (0.20-1.00) 10*3/uL Eosinophils # (0.04-0.35) 10*3/uL Glucose 101 H (74-99) mg/dL Urine Protein Trace H (Negative) 04/21/25 Range/Units 08:31 WBC 11.61 H (4.50-10.00) 10*3/uL MPV 8.3 L (9.5-12.2) fL Immature Gran # (0.00-0.04) 10*3/uL Neutrophils # 9.01 H (1.80-7.70) 10*3/uL Monocytes # 1.06 H (0.20-1.00) 10*3/uL Eosinophils # 0.03 L (0.04-0.35) 10*3/uL Glucose (74-99) mg/dL Urine Protein (Negative)
== END 2025-04-21 10:05 | disposition home or self-care (01) ==
LOC: EC 09:50 → 4SSUR 14:06
PROVIDERS: ADMIT Surgery Plastic and Reconstructive Surgery; ATTEND Surgery Plastic and Reconstructive Surgery
DX: K35.80 Unspecified acute appendicitis (principal); N43.3 Hydrocele, unspecified; E66.01 Morbid (severe) obesity due to excess calories; Z68.42 Body mass index [BMI] 45.0-49.9, adult; F17.200 Nicotine dependence, unspecified, uncomplicated; Z98.84 Bariatric surgery status
CPT/HCPCS: 44970; S2900; 36415; 74177; 76870; 80053; 81003; 85025; 87040; 88304; 93975; 96374; 96375; 99285